=== PATIENT | male | born 1970 | race Caucasian/White ===

== ENCOUNTER → 2018-10-17 | Outpatient (CLI) | payer OTHER ==
--- NOTE | 2018-10-17 12:55 | RAD ---
EXAM: Bilateral shoulders, 3 views. HISTORY: Pain. COMPARISON: None. FINDINGS: 3 views of both shoulders are obtained. There is no fracture, dislocation or subluxation. There is a small benign bone island within the left humeral head. There are suspected tiny degenerative subchondral cysts or erosions involving the acromioclavicular joints. IMPRESSION: 1. Suspected tiny degenerative subchondral cysts or erosions involving the acromioclavicular joints. 2. No acute osseous finding. Electronically signed by: Alize Suárez MD (10/17/2018 12:52 PM) [place] [id number]
== END | disposition home or self-care (01) ==
LOC: RAD 12:29
PROVIDERS: ATTEND Family Medicine
DX: M25.512 Pain in left shoulder (principal)
CPT/HCPCS: 73030